=== PATIENT | female | born 1985 | race Caucasian/White ===

== ENCOUNTER 2017-03-15 21:19 | Emergency (ER) | payer SELFPAY ==
--- NOTE | 2017-03-19 09:32 | ER ---
ADMIT: 03/15/2017 RM/LOC: ER [facility] MR#: [id number] [address] [id number] [place] [address] [place] [address] [place] [address] Emergency Room Report SEX: F AGE: 31 : 1985 DATE: 03/15/2017 ADDENDUM: This patient comes into the ER because she had a sudden onset of severe itching, difficulty breathing, and then proceeded to vomit three to four times. She was driving her car. Denies eating anything in the last hour. It was a sudden onset. She does not have any history of having allergies. On physical exam, her skin is bright red, generalized. She does have some wheezing. No swelling in her throat. No swelling in her face. She was given epi 0.3 mg which immediately seemed to help her symptoms. Also, IV diphenhydramine 50 mg, famotidine 20, and dexamethasone 20 mg IV. I sent her home on prednisone. She was monitored in the ER for an hour and did not have return of her symptoms. DIAGNOSIS: Allergic reaction. Please see my T-sheet. ERASMO Dominguez / Otilio Page MD / ashlie JOB #: [id number] CC: Otilio Page MD, Attending Physician Sudhir Arrieta MD, Family Physician
== END 2017-03-15 23:13 | disposition home or self-care (01) ==
LOC: ER 21:19
DX: L50.0 Allergic urticaria (principal); F17.210 Nicotine dependence, cigarettes, uncomplicated